=== PATIENT | female | born 1985 | race Two or more races ===

== ENCOUNTER 2020-01-10 07:10 | Inpatient (IN) | payer BC ==
[~2020-01-10] VITALS: Ht 154.9 cm; Wt 97.5 kg
[~2020-01-10 07:10] MED LIST: ANESTHESIA TRAY IN PYXIS 1 EA TRAY MC ONE; BUPIVACAINE MPF 0.5% W/EPI INJ 30 ML VIAL ONE; LIDOCAINE HCL/MPF 1% 30 ML VIAL IJ ONE
[2020-01-10] MEDS ORDERED: ANESTHESIA TRAY IN PYXIS 1 EA TRAY MC ONE (15:07)
[2020-01-10] MEDS ORDERED: LIDOCAINE HCL/MPF 1% 30 ML VIAL IJ ONE (15:13)
[2020-01-10] MEDS ORDERED: BUPIVACAINE MPF 0.5% W/EPI INJ 30 ML VIAL ONE (15:14)
[2020-01-10] MEDS ORDERED: HEPARIN SODIUM, PORCINE 5000 UNITS/1 ML VIAL ONE (15:14)
[2020-01-10] MEDS ORDERED: SCOPOLAMINE HBR 1 EA PATCH.TD72 TD ONE (15:30)
[2020-01-10] MEDS ORDERED: HYDROCODONE/APAP 5/325MG 1 EACH TABLET PO PRN ×2 (15:30→21:00)
[2020-01-10] MEDS ORDERED: MIDAZOLAM HCL 2 MG/2ML VIAL ONE (15:31)
[2020-01-10] MEDS ORDERED: FENTANYL PF 250MCG/5ML AMPUL ONE (15:31)
[2020-01-10] MEDS ORDERED: MEPERIDINE HCL/PF 100 MG/ML DISP.SYRIN ONE (15:32)
[2020-01-10] MEDS ORDERED: FENTANYL PF 100MCG/2ML AMPUL ONE (15:32)
[2020-01-10] MEDS ORDERED: ROCURONIUM BROMIDE 50 MG/5 ML ONE (15:33)
[2020-01-10] MEDS ORDERED: FAMOTIDINE/PF INJ 20 MG/2 ML VIAL IV ONE (15:33)
[2020-01-10] MEDS ORDERED: ONDANSETRON HCL/PF 4 MG/2 ML VIAL ONE (18:31)
[2020-01-10 20:00] VITALS: BP 143/83
--- NOTE | 2020-01-10 20:00 | NUR ---
RN ADMITTING NOTES RECEIVED REPORT FROM DAYSHIFT ALEJANDRA DORSEY. PER REPORT Pt WAS DAY SURGERY, JUST ARRIVED TO THE FLOOR @1900 S/P GASTRIC SLEEVE SX WITH DR NANETTE POOL. ADMISSION AND ADMITTING ORDERS STILL NEED TO BE DONE FOR Pt. INFORMED HOSPITALIST THAT Pt HAS ARRIVED TO FLOOR, WAITING FOR ORDERS. Pt IS A/OX4, VERBAL, ABLE TO MAKE NEEDS KNOWN. FOUND Pt AWAKE, RESTING IN BED, BOYFRIEND VISITING AT BEDSIDE. IV ACCESS LWRIST #20G. SAFETY MEASURES IN PLACE. BED LOW, LOCKED, HOB ELEVATED, SIDE RAILS UP, CALL LIGHT AND BEDSIDE TABLE WITHIN REACH. WILL CONTINUE TO MONITOR Pt's CONDITION AND SAFETY THROUGHOUT THE NIGHT.
[2020-01-10] MEDS ORDERED: ACETAMINOPHEN 325 MG TABLET PO PRN ×2 (21:00)
[2020-01-10] MEDS ORDERED: ZOLPIDEM TARTRATE 5 MG TABLET PO PRN (21:00)
[2020-01-10] MEDS ORDERED: MAGNESIUM HYDROXIDE 30 ML UDC PO PRN (21:00)
[2020-01-10] MEDS ORDERED: Z GUARD REMEDY 2 OZ OINT TP PRN ×2 (21:00)
[2020-01-10] MEDS ORDERED: PANTOPRAZOLE 40 MG VIAL IV SCH (21:00)
[2020-01-10] MEDS ORDERED: HEPARIN SODIUM, PORCINE 5000 UNITS/1 ML VIAL SQ SCH (21:00)
[2020-01-10] MEDS ORDERED: MAG HYDROX/AL HYDROX/SIMETH 30 ML UDC PO PRN (21:00)
[2020-01-10] MEDS ORDERED: ONDANSETRON HCL/PF 4 MG/2 ML VIAL IVP PRN ×2 (21:00)
[2020-01-10] MEDS: ONDANSETRON HCL/PF 4 MG/2 ML VIAL IV PRN (21:40)
[2020-01-10] MEDS: FENTANYL PF 100MCG/2ML AMPUL IV PRN (21:50)
[2020-01-10 22:43] LABS: BASOPHILS % (AUTO) 0.3 % (0.0-2.0); HEMATOCRIT 40 % (33-45); HEMOGLOBIN 13.4 g/dL (11.5-14.8); LYMPHOCYTES % (AUTO) 8.2 % (20.0-44.0); MEAN CORPUSCULAR HGB CONC 33 g/dl (31.0-36.0); MEAN CORPUSCULAR VOLUME 97 fL (82-100); MONOCYTES # (AUTO) 0.1 /CMM (0.1-1.30); MONOCYTES % (AUTO) 1.1 % (2.0-12.0); NEUTROPHILS # (AUTO) 11.2 /CMM (1.8-8.9); NEUTROPHILS % (AUTO) 90.4 % (43.0-81.0); PLATELET COUNT (AUTO) 327 /CMM (150-450); RED BLOOD CELL COUNT(AUTO) 4.17 MIL/uL (4.0-5.2); WHITE BLOOD COUNT (AUTO) 12.5 K/uL (4.3-11.0)
[2020-01-10 22:52] LABS: CALCIUM, SERUM 8.9 mg/dL (8.5-10.1); CREATININE 0.8 mg/dL (0.6-1.3); POTASSIUM 4.5 mmol/L (3.5-5.1)
--- NOTE | 2020-01-10 23:35 | NUR ---
RN NOTES MRSA SWAB COLLECTED & PLACED IN SPECIMEN FRIDGE
[2020-01-10] MEDS: METOCLOPRAMIDE HCL 10 MG/2 ML VIAL IV SCH (23:37)
[2020-01-10] MEDS: IV NS 0.9% 1,000 ML IV PRN (23:37)
[2020-01-11] MEDS: METOCLOPRAMIDE HCL 10 MG/2 ML VIAL IV SCH ×3 (05:38→17:19)
[2020-01-11] MEDS: FENTANYL PF 100MCG/2ML AMPUL IV PRN ×2 (05:54→12:39)
[2020-01-11] MEDS: ONDANSETRON HCL/PF 4 MG/2 ML VIAL IV PRN (05:54)
[2020-01-11] MEDS ORDERED: PANTOPRAZOLE 40 MG TABLET.DR PO SCH (07:30)
--- NOTE | 2020-01-11 07:37 | NUR ---
MS RN OPENING NOTE PATIENT IN BED RESTING COMFORTABLY. PATIENT IN NO ACUTE DISTRESS. NO SOB NOTED. PATIENT BREATHING IS EVEN AND UNLABORED. PATIENT IN NO PAIN AT THIS TIME. PATIENT SAFETY PRECAUTIONS IN PLACE. PATIENT BED IS LOCKED AND IN LOWEST POSITION. CALL LIGHT WITHIN REACH. WILL CONTINUE TO MONITOR.
--- NOTE | 2020-01-11 07:39 | NUR ---
RN CLOSING NOTES NO SIGNIFICANT CHANGES IN Pt's CONDITION. Pt IS RESTING COMFORTABLY IN BED. NO S/S OF ACUTE DISTRESS OR SOB NOTED. ALL NEEDS MET AND ATTENDED TO. SAFETY MEASURES IN PLACE. WILL ENDORSE TO DAYSHIFT RN FOR Pt's COLLIN.
[2020-01-11 08:00] VITALS: BP 120/78
[2020-01-11 08:00] LABS: BASOPHILS % (AUTO) 0.4 % (0.0-2.0); HEMATOCRIT 39 % (33-45); HEMOGLOBIN 13.1 g/dL (11.5-14.8); LYMPHOCYTES # (AUTO) 1.6 /CMM (0.8-4.8); LYMPHOCYTES % (AUTO) 17.3 % (20.0-44.0); MEAN CORPUSCULAR HGB CONC 34 g/dl (31.0-36.0); MEAN CORPUSCULAR VOLUME 96 fL (82-100); MONOCYTES # (AUTO) 0.6 /CMM (0.1-1.30); MONOCYTES % (AUTO) 6.2 % (2.0-12.0); NEUTROPHILS % (AUTO) 76.1 % (43.0-81.0); PLATELET COUNT (AUTO) 305 /CMM (150-450); RED BLOOD CELL COUNT(AUTO) 4.08 MIL/uL (4.0-5.2); WHITE BLOOD COUNT (AUTO) 9.2 K/uL (4.3-11.0)
[2020-01-11] MEDS ORDERED: PANTOPRAZOLE 40 MG/PACK PACK PO SCH (09:00)
[2020-01-11 09:09] LABS: CALCIUM, SERUM 8.6 mg/dL (8.5-10.1); CREATININE 0.7 mg/dL (0.6-1.3); MAGNESIUM 1.9 mg/dL (1.8-2.4)
[2020-01-11] MEDS ORDERED: DIATR MEGLU/DIATRIZOATE SODIUM 120 ML BOTTLE (GASTROGRAPHIN) ONE ×2 (11:00)
[2020-01-11] MEDS ORDERED: HEPARIN SODIUM, PORCINE 5000 UNITS/1 ML VIAL SQ SCH (14:30)
[2020-01-11] MEDS: ENSURE ENLIVE 237 ML LIQUID (VANILLA) PO SCH ×2 (15:12→17:20)
[2020-01-11] MEDS: IV NS 0.9% 1,000 ML IV PRN (15:33)
[2020-01-11 16:00] VITALS: BP 138/80
--- NOTE | 2020-01-11 17:00 | NUR ---
MS RN NOTE PATIENT REFUSED SKIN ASSESSMENT. EDUCATED RISKS VS BENEFITS. PATIENT CONTINUED TO REFUSE.
--- NOTE | 2020-01-11 17:19 | NUR ---
MS RN NOTE PATIENT REFUSED REGLAN IV. EDUCATED RISKS VS BENEFITS. PATIENT CONTINUED TO REFUSE.
--- NOTE | 2020-01-11 17:45 | NUR ---
MS RN NOTE PATIENT CLEARED BY YANELI SUAZO NP. NKECHI LO NOTIFIED AND MADE AWARE. INFORMED HIM OF PATIENTS PREFERRED PHARMACY.
[2020-01-11] MEDS ORDERED: PANT40TA2 PO (18:32)
[2020-01-11] MEDS ORDERED: METO-295 PO (18:32)
[2020-01-11] MEDS ORDERED: HYDR-4384 PO (18:32)
--- NOTE | 2020-01-11 19:02 | NUR ---
MS SEMICONDUCTOR ASSEMBLER NOTE PATIENT MEDICALLY STABLE FOR DISCHARGE. PATIENT IN NO ACUTE DISTRESS. NO SOB NOTED. PATIENT BREATHING IS EVEN AND UNLABORED. PATIENT STERI STRIPS DRY AND INTACT. PATIENT REFUSED TO HAVE SKIN ASSESSMENT DONE. EDUCATED RISKS VS BENEFITS. PATIENT CONTINUED TO REFUSE. DC INSTRUCTIONS PROVIDED. PATIENT VERBALIZED UNDERSTANDING. LAKEISHA ANNE CONSULTED DISCHARGE CARE TO PATIENT. PATIENT VERBALIZED UNDERSTANDING. PATIENT IV REMOVED. ID BAND REMOVED. PATIENT ACKNOWLEDGED BELONGINGS AND HAS BELONGINGS WITH HER. PATIENT SIGNED BELONGINGS LIST. PATIENT KEPT CLEAN, DRY AND COMFORTABLE THROUGHOUT SHIFT. PATIENT NEEDS AND CONCERNS ADDRESSED. PREFERRED PHARMACY PUT IN AND SENT BY NKECHI LO. PATIENT AMBULATORY AND LEFT WITH BOYFRIEND GOING BACK HOME. MD AWARE OF DISCHARGE.
== END 2020-01-11 19:00 | disposition home or self-care (01) | DRG 983 ==
LOC: DS 07:10 → MED 20:29
PROVIDERS: ADMIT Student in an Organized Health Care Education/Training Program; ATTEND Surgery
PROC: 0FB04ZX Excision of Liver, Percutaneous Endoscopic Approach, Diagnostic (ICD-10-PCS; principal; 2020-01-10)
PROC: 0DB64ZZ Excision of Stomach, Percutaneous Endoscopic Approach (ICD-10-PCS; principal; 2020-01-10)
PROC: 0BQT4ZZ Repair Diaphragm, Percutaneous Endoscopic Approach (ICD-10-PCS; principal; 2020-01-10)
DX: E66.01 Morbid (severe) obesity due to excess calories (principal); G47.33 Obstructive sleep apnea (adult) (pediatric); K44.9 Diaphragmatic hernia without obstruction or gangrene; K76.0 Fatty (change of) liver, not elsewhere classified; E78.5 Hyperlipidemia, unspecified
CPT/HCPCS: 36415; 74246-TC; 80048-TC; 80061-TC; 83735-TC; 84100-TC; 84703-TC; 85025-TC; 87081-TC; 88307-TC; 88313-TC; 88342; G0378; J1644; J2175; J2250; J2405; J2765; J3010; J3490; J7030; J7120; Q9963